=== PATIENT | female | born 1955 | race Caucasian/White ===

== ENCOUNTER → 2022-03-15 | Outpatient (CLI) | payer OTHER | END | disposition home or self-care (01) | LOC: RAH 12:35 | PROVIDERS: ATTEND Internal Medicine Cardiovascular Disease | DX: Z13.6 Encounter for screening for cardiovascular disorders (principal); I51.5 Myocardial degeneration | CPT/HCPCS: 75571 ==

== ENCOUNTER → 2022-04-19 | Outpatient (CLI) | payer BC | END | disposition home or self-care (01) | LOC: CANSCHCLI → SLP 20:56 | PROVIDERS: ATTEND Internal Medicine Cardiovascular Disease | DX: G47.33 Obstructive sleep apnea (adult) (pediatric) (principal) | CPT/HCPCS: 95811 ==

== ENCOUNTER → 2022-04-26 | Outpatient (CLI) | payer BC ==
[2022-04-26 12:43] LABS: BASOPHILS % (AUTO) 0.6 % (0.0-5.0); EOSINOPHILS % (AUTO) 2.1 % (0.0-8.0); HEMATOCRIT 42.9 % (36-48); LYMPHOCYTES % (AUTO) 41.6 % (21.0-51.0); MEAN CORPUSCULAR HEMOGLOBIN 31.9 pg (27.0-33.0); MEAN CORPUSCULAR HGB CONC 33.8 g/dL (32.0-36.0); MEAN CORPUSCULAR VOLUME 94.3 fL (79-99); MONOCYTES % (AUTO) 7.3 % (3.0-13.0); NEUTROPHILS % (AUTO) 48.2 % (40.0-77.0); PLATELET COUNT (AUTO) 235 K/uL (130-400); RED BLOOD CELL COUNT(AUTO) 4.55 MIL/uL (4.00-5.50); RED CELL DISTRIBUTION WIDTH 11.9 % (11.0-15.5); WHITE BLOOD COUNT (AUTO) 5.2 K/uL (4.8-10.8)
[2022-04-26 13:15] LABS: CREATININE 0.9 mg/dL (0.5-1.5); POTASSIUM 3.9 mmol/L (3.5-5.1); T4 (THYROXINE) 6.2 ug/dL (4.7-13.3); THYROID STIMULATING HORMONE 1.57 uIU/mL (0.36-3.74)
== END | disposition home or self-care (01) ==
LOC: LAB 10:26
PROVIDERS: ATTEND Internal Medicine Cardiovascular Disease
DX: R00.1 Bradycardia, unspecified (principal)
CPT/HCPCS: 36415; 80050; 80053; 80061; 84436; 84443; 84479; 85025

== ENCOUNTER → 2022-05-19 | Outpatient (CLI) | payer BC ==
[~2022-05-19] MED LIST: REGADENOSON 0.4 MG/5 ML PF SYG IVP ONE
== END | disposition home or self-care (01) ==
LOC: SHCH 09:11
PROVIDERS: ATTEND Internal Medicine Cardiovascular Disease
DX: I25.10 Atherosclerotic heart disease of native coronary artery without angina pectoris (principal)
CPT/HCPCS: 78452; 96374; 93017; J2785; A9500 ×2

== ENCOUNTER 2022-08-21 06:07 | Day surgery (SDC) | payer MEDICARE ==
[2022-08-18 10:49] LABS: BASOPHILS % (AUTO) 0.6 % (0.0-5.0); EOSINOPHILS % (AUTO) 4.1 % (0.0-8.0); HEMATOCRIT 42.8 % (36-48); LYMPHOCYTES % (AUTO) 39.3 % (21.0-51.0); MEAN CORPUSCULAR HEMOGLOBIN 31.6 pg (27.0-33.0); MEAN CORPUSCULAR HGB CONC 33.4 g/dL (32.0-36.0); MEAN CORPUSCULAR VOLUME 94.7 fL (79-99); MONOCYTES % (AUTO) 7.2 % (3.0-13.0); NEUTROPHILS % (AUTO) 48.6 % (40.0-77.0); PLATELET COUNT (AUTO) 206 K/uL (130-400); RED BLOOD CELL COUNT(AUTO) 4.52 MIL/uL (4.00-5.50); RED CELL DISTRIBUTION WIDTH 12.1 % (11.0-15.5); WHITE BLOOD COUNT (AUTO) 4.8 K/uL (4.8-10.8)
[2022-08-18 10:54] LABS: APPEARANCE,URINE CLEAR (CLEAR); BILIRUBIN,URINE NEGATIVE (NEGATIVE); COLOR,URINE LIGHT-YELLOW (YELLOW); GLUCOSE, URINE (UA) NEGATIVE (NEGATIVE); KETONES,URINE NEGATIVE (NEGATIVE); LEUKOCYTE ESTERASE ,URINE 75 Leu/uL (NEGATIVE); NITRATE,URINE NEGATIVE (NEGATIVE); OCCULT BLOOD,URINE NEGATIVE (NEGATIVE); PROTEIN,URINE NEGATIVE (NEGATIVE); UROBILINOGEN,URINE 0.2 mg/dL (0.2-1.0)
[2022-08-18 11:04] LABS: BACTERIA,URINE RARE /HPF (None Seen); MUCUS,URINE RARE LPF (None Seen); SQUAMOUS EPITHELIAL CELL,UR RARE /HPF (0-2)
[2022-08-18 11:16] VITALS: BP 149/82
[2022-08-18 11:19] LABS: B-TYPE NATRIURETIC PEPTIDE 87 pg/mL (0-100); CREATININE 0.9 mg/dL (0.5-1.5); POTASSIUM 3.9 mmol/L (3.5-5.1)
[2022-08-18 11:23] LABS: INR 0.94 (0.85-1.15)
[2022-08-18 11:24] LABS: PARTIAL THROMBOPLASTIN TIME 26.8 SEC (26.3-35.5)
[~2022-08-21] VITALS: Ht 172.7 cm; Wt 109.2 kg
[2022-08-21] VITALS (9 sets, daily range): BP systolic 115–149; BP diastolic 69–83
[~2022-08-21 06:07] MED LIST changes: +ASPI-1005 PO; +CITA-106 PO; -REGADENOSON 0.4 MG/5 ML PF SYG IVP ONE; +SIMV-46 PO; +VITAMIN D PO
[2022-08-21] MEDS ORDERED: 0.9%NACL 1000ML 1,000 ML IV ONE (06:49)
[2022-08-21] MEDS ORDERED: LIDOCAINE HCL 400MG/20ML VIAL ONE (07:12)
[2022-08-21] MEDS ORDERED: SODIUM BICARB 50MEQ 50ML VIAL 50 ML ONE (07:12)
[2022-08-21] MEDS ORDERED: MIDAZOLAM HCL 1 MG/ML 2ML VIAL ONE ×2 (07:13→07:31)
[2022-08-21] MEDS ORDERED: HEPARIN 10,000 UNIT/10ML (1,000 UNIT/ML) VIAL ONE (07:13)
[2022-08-21] MEDS ORDERED: MEPERIDINE-PF 25 MG/ML SYG ONE ×2 (07:13→07:32)
[2022-08-21] MEDS ORDERED: NITROGLYCERIN 50MG VIAL ONE (07:13)
[2022-08-21] MEDS ORDERED: NICARDIPINE 25MG INJ IV ONE (07:13)
[2022-08-21] MEDS ORDERED: ATROPINE 1MG SYG IVP ONE (07:27)
[2022-08-21] MEDS ORDERED: IOHEXOL-350 75 ML VIAL IV ONE (07:47)
[2022-08-21] MEDS ORDERED: 0.9%NACL 1000ML 1,000 ML IV SCH (08:30)
== END 2022-08-21 12:02 | disposition home or self-care (01) ==
LOC: DAH 06:07
PROVIDERS: ATTEND Internal Medicine Cardiovascular Disease
DX: R94.39 Abnormal result of other cardiovascular function study (principal); I25.10 Atherosclerotic heart disease of native coronary artery without angina pectoris; G47.33 Obstructive sleep apnea (adult) (pediatric); F41.9 Anxiety disorder, unspecified; F32.A Depression, unspecified; E66.9 Obesity, unspecified; Z88.0 Allergy status to penicillin; Z79.899 Other long term (current) drug therapy; Z98.890 Other specified postprocedural states; Z68.36 Body mass index [BMI] 36.0-36.9, adult; Z79.01 Long term (current) use of anticoagulants
CPT/HCPCS: 80048; 83880; 85025; 85610; 85730; 87088; 81001; 36415; 71045; 93005; 93458; A4223 ×3; C1769; A4649; C1894; J3490 ×4; J7030; J0461; J1644 ×2; J2250 ×2; J2175 ×2; Q9967; A4215; A4222; A4221; A4663; A4216; A4606; 99156; 99157

== ENCOUNTER 2022-10-30 08:29 | Day surgery (SDC) | payer MEDICARE ==
[2022-10-26 09:09] LABS: BASOPHILS # (AUTO) 0.04 K/uL (0.00-0.20); BASOPHILS % (AUTO) 0.9 % (0.0-5.0); EOSINOPHILS # (AUTO) 0.28 K/uL (0.00-0.70); EOSINOPHILS % (AUTO) 6.2 % (0.0-8.0); HEMATOCRIT 41.2 % (36-48); IMMATURE GRANULOCYTE ABSOLUTE 0.01 K/uL (0-1); LYMPHOCYTES # (AUTO) 1.9 K/uL (1.0-4.8); LYMPHOCYTES % (AUTO) 41.8 % (21.0-51.0); MEAN CORPUSCULAR HEMOGLOBIN 31.9 pg (27.0-33.0); MEAN CORPUSCULAR HGB CONC 32.8 g/dL (32.0-36.0); MEAN CORPUSCULAR VOLUME 97.4 fL (79-99); MONOCYTES # (AUTO) 0.4 K/uL (0.1-1.0); MONOCYTES % (AUTO) 9.5 % (3.0-13.0); NEUTROPHILS # (AUTO) 1.9 K/uL (1.8-7.7); NEUTROPHILS % (AUTO) 41.4 % (40.0-77.0); PLATELET COUNT (AUTO) 205 K/uL (130-400); RED BLOOD CELL COUNT(AUTO) 4.23 MIL/uL (4.00-5.50); RED CELL DISTRIBUTION WIDTH 12.3 % (11.0-15.5); WHITE BLOOD COUNT (AUTO) 4.5 K/uL (4.8-10.8)
[2022-10-26 09:20] LABS: CREATININE 0.8 mg/dL (0.5-1.5)
[2022-10-26 09:23] LABS: INR < 0.93 (0.85-1.15); PROTHROMBIN TIME 10.6 SEC (9.6-11.6)
[2022-10-26 09:24] LABS: PARTIAL THROMBOPLASTIN TIME 27.3 SEC (26.3-35.5)
[2022-10-26 09:39] VITALS: BP 145/75; PULSE 46; RESP 18
[2022-10-30] VITALS (10 sets, daily range): BP systolic 131–156; BP diastolic 84–97; PULSE 50–71; RESP 14–17
[~2022-10-30] VITALS: Ht 172.7 cm; Wt 108.0 kg
[2022-10-30] MEDS ORDERED: 0.9%NACL 1000ML 1,000 ML IV ONE (09:30)
[2022-10-30] MEDS ORDERED: VANCOMYCIN 1G/250ML KIT 500 ML IV ONE (11:51)
[2022-10-30] MEDS ORDERED: MEPERIDINE-PF 25 MG/ML SYG ONE ×3 (11:52→12:23)
[2022-10-30] MEDS ORDERED: MIDAZOLAM HCL 1 MG/ML 2ML VIAL ONE ×3 (11:52→12:23)
[2022-10-30] MEDS ORDERED: LIDOCAINE HCL 1% MDV 50ML VIAL ONE (11:52)
[2022-10-30] MEDS ORDERED: BUPIVACAINE/PF 0.25% 30ML VIAL IJ ONE (11:52)
[2022-10-30] MEDS ORDERED: BACITRACIN 1 EACH PACKET TP ONE (13:07)
[2022-10-30] MEDS ORDERED: ONDANSETRON 4MG INJ IV PRN (14:00)
[2022-10-30] MEDS ORDERED: ACETAMINOPHEN WITH CODEINE 1 TAB TAB PO PRN ×2 (14:00)
== END 2022-10-30 18:20 | disposition home or self-care (01) ==
LOC: DAH 08:29
PROVIDERS: ATTEND Internal Medicine Cardiovascular Disease
DX: I49.5 Sick sinus syndrome (principal); G47.33 Obstructive sleep apnea (adult) (pediatric); I47.1 Supraventricular tachycardia; F41.9 Anxiety disorder, unspecified; E66.9 Obesity, unspecified; Z79.01 Long term (current) use of anticoagulants; Z79.899 Other long term (current) drug therapy; Z79.82 Long term (current) use of aspirin; Z98.890 Other specified postprocedural states; Z88.0 Allergy status to penicillin; Z68.36 Body mass index [BMI] 36.0-36.9, adult
CPT/HCPCS: 80048; 85025; 85610; 85730; 36415; 93005; 33208; 71045; C1785; C1898 ×2; C1894; J7030; J3490 ×2; J2250 ×3; J3370; J2175 ×3; A4215; A4222; A4221; A4663; A4216; A4606; A4223 ×3; 99156; 99157

== ENCOUNTER → 2023-03-19 | Outpatient (CLI) | payer MEDICARE | END | disposition home or self-care (01) | LOC: SHCH 15:19 | PROVIDERS: ATTEND Internal Medicine Cardiovascular Disease | DX: I51.7 Cardiomegaly (principal); R00.1 Bradycardia, unspecified; E78.5 Hyperlipidemia, unspecified; Z95.0 Presence of cardiac pacemaker | CPT/HCPCS: 93306 ==

== ENCOUNTER → 2024-04-18 | Outpatient (CLI) | payer MEDICARE ==
--- NOTE | 2024-04-21 13:33 | HMCSR ---
APPROVED REPORT EXAM: Two-dimensional and M-mode echocardiogram with Doppler and color Doppler. INDICATION ICD: Dyspnea 2D Dimensions RVDd3.4 cmLVEF(%)72.3 (>50%)LVED Vol(simp.)107.0 mL IVSd1.1 (0.7-1.1cm)FS(%)41 %LVES Vol(simp.)50.1 mL LVDd4.6 (3.8-5.6cm)LA (2D)4.2 (1.6-4.0cm)LVEF(%, simp.)53 % PWd1.2 (0.7-1.1cm)Ao Root(2D)3.0 (2.0-3.7cm)LA ESV INDEX (4CH)21.20 mL/m2 IVSs1.6 cmLVOT diam2.2 (1.8-2.4cm)LA ESV INDEX (2CH)25.20 mL/m2 LVDs2.7 (2.5-4.0cm)LA ESV INDEX (BP)23.20 mL/m2 PWs1.7 cm M-Mode Dimensions EPSS1.2 cm LA (MM)3.9 (1.6-4.0cm) Ao Root(MM)3.1 (2.0-3.7cm) Aortic Valve AoV VTI0.2 mAo Mean GR2.0 mmHgLVOT VTI0.18 m FRANKLIN (VMAX)3.5 cm2AVA (VTI) 3.5 cm2 Mitral Valve MV E Vmax32.1 cm/sDECEL Qxbd945 ms MV A Vmax39.5 cm/sP 1/2 T65 ms E/A ratio0.8MVA (PHT)3.4 cm2 TDI E/E' Medial4.7 Medial E' Peak V6.90 cm/s Left Ventricle The left ventricle is normal size. There is normal left ventricular wall thickness. LVEF is 50-55%. N o left ventricle thrombus noted on this study. Right Ventricle The right ventricle is normal size. The right ventricular systolic function is normal. Atria The left atrium size is normal. The right atrium size is normal. Aortic Valve The aortic valve is normal in structure. No aortic regurgitation is present. There is no aortic valvu lar stenosis. Mitral Valve The mitral valve is normal in structure. There is no mitral valve regurgitation noted. There is no mi tral valve stenosis. Tricuspid Valve The tricuspid valve is normal in structure. There is no tricuspid valve regurgitation noted. Pulmonic Valve The pulmonary valve is normal in structure. There is no pulmonic valvular regurgitation. Great Vessels The aortic root is normal in size. The IVC is normal in size and collapses >50% with inspiration. Pericardium There is no pericardial effusion. Conclusion The left ventricle is normal size. LVEF is 50-55%. The right ventricle is normal size. The left atrium size is normal. The aortic valve is normal in structure. The mitral valve is normal in structure. There is no mitral valve regurgitation noted. There is no mitral valve stenosis. There is no tricuspid valve regurgitation noted. There is no pulmonic valvular regurgitation. The aortic root is normal in size. The IVC is normal in size and collapses >50% with inspiration. There is no pericardial effusion.
== END | disposition home or self-care (01) ==
LOC: RAH 10:35
PROVIDERS: ATTEND Internal Medicine Cardiovascular Disease
DX: R06.00 Dyspnea, unspecified (principal)
CPT/HCPCS: 93306